=== PATIENT | male | born 1960 | race Caucasian/White ===

== ENCOUNTER 2016-07-24 09:13 | Emergency (ER) | payer MEDICARE, MEDICAID ==
[2016-07-24 09:30] VITALS: BP 156/82; PULSE 117; RESP 18; TEMP 97.2; O2SAT 95
== END 2016-07-24 10:24 | disposition home or self-care (01) | DRG 153 ==
LOC: ED 09:13
DX: J06.9 Acute upper respiratory infection, unspecified (principal); E11.9 Type 2 diabetes mellitus without complications; Z79.4 Long term (current) use of insulin
CPT/HCPCS: 99282

== ENCOUNTER 2016-09-01 15:25 | Emergency (ER) | payer OTHER, MEDICARE, MEDICAID ==
[2016-09-01 16:47] VITALS: RESP 16; TEMP 98
[2016-09-01 17:07] VITALS: BP 113/85; PULSE 108; O2SAT 96
== END 2016-09-01 16:50 | disposition home or self-care (01) | DRG 605 ==
LOC: ED 15:25
DX: S80.812A Abrasion, left lower leg, initial encounter (principal); S80.811A Abrasion, right lower leg, initial encounter; V43.52XA Car driver injured in collision with other type car in traffic accident, initial encounter
CPT/HCPCS: 71020; 99282; 99283

== ENCOUNTER 2017-06-09 22:05 | Emergency (ER) | payer MEDICARE, MEDICAID ==
[2017-06-09] MEDS ORDERED: SODIUM CHLORIDE 0.9% 1000ML 1,000 ML IV SCH (22:15)
[2017-06-09] MEDS ORDERED: ACETAMINOPHEN 500 MG 500 MG TAB PO ONE (22:17)
[2017-06-09 22:23] VITALS: TEMP 100.7
[2017-06-09] MEDS ORDERED: ACETAMINOPHEN 500 MG 500 MG TAB ONE (22:31)
[2017-06-09 22:43] LABS: BASOPHILS % (AUTO) 1 % (0-3); EOSINOPHILS % (AUTO) 0 % (0-9); HEMATOCRIT 38 % (39-53); MEAN CORPUSCULAR HGB CONC 37.2 gm/dl (32.0-36.0); MEAN CORPUSCULAR VOLUME 88 fL (80-100); MONOCYTES % (AUTO) 6.5 % (0-12); NEUTROPHILS % (AUTO) 82.4 % (37-80)
[2017-06-09 22:47] LABS: GLOM FILT RATE 88 mL/min (>60)
[2017-06-09 22:53] LABS: POTASSIUM 3.2 mMol/L (3.5-5.1)
[2017-06-09 22:58] VITALS: RESP 12
[2017-06-09 23:01] LABS: SODIUM 138 mMol/L (136-145)
[2017-06-09 23:07] LABS: NORMAL RBCS PRESENT
[2017-06-09] MEDS ORDERED: POTASSIUM CHLORIDE 10 MEQ TER PO ONE (23:08)
[2017-06-09] MEDS ORDERED: OSELTAMIVIR PHOSPHATE 75 MG CAP PO ONE ×2 (23:09→23:20)
[2017-06-09 23:18] VITALS: BP 126/78; PULSE 116; O2SAT 95
[2017-06-09] MEDS ORDERED: POTASSIUM CHLORIDE 10 MEQ TER ONE (23:20)
[2017-06-09] MEDS ORDERED: AZITHROMYCIN 250 MG TAB PO ONE (23:32)
[2017-06-09] MEDS ORDERED: AZITHROMYCIN 250 MG TAB ONE (23:33)
== END 2017-06-09 23:44 | disposition home or self-care (01) | DRG 153 ==
LOC: ED 22:05
DX: J11.1 Influenza due to unidentified influenza virus with other respiratory manifestations (principal); E86.0 Dehydration; E86.1 Hypovolemia; E87.6 Hypokalemia; R19.7 Diarrhea, unspecified; R05 Cough
CPT/HCPCS: 36415; 71046; 80048; 84484; 85025; 87804; 93005; 96365; 99284; 99285; A9270-GY

== ENCOUNTER 2018-05-08 10:59 | Emergency (ER) | payer MEDICARE, OTHER ==
[2018-05-08 11:11] VITALS: RESP 20; O2SAT 98
[2018-05-08 12:15] LABS: BASOPHILS % (AUTO) 1 % (0-3); EOSINOPHILS % (AUTO) 5 % (0-9); HEMATOCRIT 42 % (39-53); HEMOGLOBIN 14.3 gm/dl (13.5-17.7); LYMPHOCYTES % (AUTO) 38.9 % (10-50); MEAN CORPUSCULAR HEMOGLOBIN 31.9 pg (27.0-32.0); MEAN CORPUSCULAR HGB CONC 33.9 gm/dl (32.0-36.0); MEAN CORPUSCULAR VOLUME 94 fL (80-100); MONOCYTES % (AUTO) 6.1 % (0-12); NEUTROPHILS % (AUTO) 49.4 % (37-80)
[2018-05-08 12:35] LABS: ALBUMIN 3.1 gm/dl (3.4-5.0); BILIRUBIN,TOTAL 0.2 mg/dl (0.2-1.0); CALCIUM 8.8 mg/dl (8.5-10.1); CARBON DIOXIDE 24.7 mEq/L (21-32); CREATININE 0.9 mg/dl (0.80-1.30); POTASSIUM 3.4 mMol/L (3.5-5.1); THYROID STIMULATING HORMONE 3.923 uIU/ml (0.358-3.740); TOTAL PROTEIN 6.9 gm/dl (6.4-8.2)
[2018-05-08 12:37] LABS: ALCOHOL 0.003 gm/dl (0.000-0.08)
[2018-05-08 12:38] LABS: ACETAMINOPHEN < 2 ug/ml (10-30); SALICYLATE 4.8 mg/dl (2.8-30.0)
[2018-05-08 12:44] LABS: APPEARANCE,URINE Clear; BILIRUBIN,URINE 1+ (NEGATIVE); COLOR,URINE Yellow; GLUCOSE, URINE (UA) 2+ (NEGATIVE); KETONES,URINE TRACE (NEGATIVE); LEUKOCYTE ESTERASE ,URINE NEGATIVE (NEGATIVE); NITRATE,URINE NEGATIVE (NEGATIVE); OCCULT BLOOD,URINE NEGATIVE (NEG-TRACE); PH,URINE 6.5
[2018-05-08 12:55] LABS: ICTOTEST,URINE NEGATIVE (NEGATIVE)
[2018-05-08 12:56] LABS: AMPHETAMINES NEGATIVE (NEGATIVE); BARBITUATES POSITIVE (NEGATIVE); BENZODIAZEPINES NEGATIVE (NEGATIVE); CANNABINOL(THC) NEGATIVE (NEGATIVE); COCAINE(COC) NEGATIVE (NEGATIVE); METHADONE NEGATIVE (NEGATIVE); METHAMPHETAMINES NEGATIVE (NEGATIVE); OPIATES(OPI) NEGATIVE (NEGATIVE); OXYCODONE(OXY) NEGATIVE (NEGATIVE); PROPOXYPHENE(PPX) NEGATIVE (NEGATIVE); TRICYCLIC ANTIDEPRESSANTS NEGATIVE (NEGATIVE)
[2018-05-08 13:02] LABS: BACTERIA TRACE (< 1+); CRYSTALS NEGATIVE (0-3 AVE/HPF); EPITHELIAL CELLS 0-2 (SQUAMOUS); RBC,URINE 0-1 (0-3AV/HPF); WBC,URINE 0-2 (0-5AV/HPF)
[2018-05-08 17:35] VITALS: BP 146/90; PULSE 98; TEMP 98.2
== END 2018-05-08 17:53 | disposition short-term general hospital (02) | DRG 880 ==
LOC: ED 10:59
DX: R45.851 Suicidal ideations (principal); E11.9 Type 2 diabetes mellitus without complications
CPT/HCPCS: 36415; 80053; 80305; 80307; 81001; 84443; 85025; 99283; 99284